=== PATIENT | female | born 1945 | race Caucasian/White ===

== ENCOUNTER → 2016-10-08 | Outpatient (CLI) | payer OTHER ==
--- NOTE | 2016-10-08 17:41 | MA ---
Screening Digital Mammogram With iCAD Analysis Clinical Indications: Routine screening. Technique: Standard cephalocaudal and mediolateral oblique projections were obtained. This examinatio n was processed by the iCAD computer aided detection system. Comparison: June 2012, June 2010, January 2009, August 2007. Breast density: Type B; Scattered fibroglandular densities. Findings: CAD was reviewed. No masses, suspicious calcifications or other signs of malignancy are id entified. There has been no significant change in the appearance of either breast. Impression: Negative mammogram. BI-RADS 1. Recommendation: Routine mammographic screening in one year as long as physical examination is negativ [facility]Pending [facility]. Negative mammography should not preclude additional workup of a clinically suspicious finding. The patient's information is entered into a reminder system with a target due date for her next mammo gram.
== END ==
LOC: BMCIMAGING 15:04
DX: Z12.31 Encounter for screening mammogram for malignant neoplasm of breast (principal)

== ENCOUNTER → 2017-04-16 | Outpatient (CLI) | payer OTHER | LOC: FIMAGING 11:00 | PROVIDERS: ATTEND Internal Medicine | DX: R91.1 Solitary pulmonary nodule (principal); M41.85 Other forms of scoliosis, thoracolumbar region ==

== ENCOUNTER → 2017-11-05 | Outpatient (CLI) | payer OTHER | LOC: BMCIMAGING 13:50 | PROVIDERS: ATTEND Internal Medicine | DX: Z12.31 Encounter for screening mammogram for malignant neoplasm of breast (principal); Z13.820 Encounter for screening for osteoporosis; M81.0 Age-related osteoporosis without current pathological fracture; E07.9 Disorder of thyroid, unspecified; E21.5 Disorder of parathyroid gland, unspecified ==

== ENCOUNTER 2017-12-27 18:21 | Emergency (ER) | payer OTHER ==
--- NOTE | 2017-12-27 18:44 | CPEKG ---
Heart Rate: 62 RR Interval: 968 P-R Interval: 172 QRSD Interval: 80 QT Interval: 428 QTC Interval: 435 P [place]: 53 QRS [place]: -26 T Wave [place]: -17 EKG Severity - ABNORMAL ECG - EKG Impression: SINUS RHYTHM EKG Impression: ATRIAL PREMATURE COMPLEX EKG Impression: PROBABLE LEFT ATRIAL ABNORMALITY EKG Impression: BORDERLINE LEFT AXIS DEVIATION EKG Impression: NONSPECIFIC T ABNORMALITIES, INFERIOR LEADS Electronically Signed By: Ronaldo Barkley 29-Dec-2017 08:31:41
[2017-12-27 18:51] LABS: PLATELET COUNT 178 10^3/uL (150-400)
[2017-12-27] MEDS ORDERED: NS 500 ML IV ONE (19:01)
--- NOTE | 2017-12-27 19:04 | EDPHY ---
H & P Stated Complaint: chest pressure/palpitations starting Sat, believes is going in &out of Afib Time Seen by Provider: 12/27/17 18:31 HPI/ROS: CHIEF COMPLAINT: Palpitations HISTORY OF PRESENT ILLNESS: 72-year-old female with a history of paroxysmal atrial fibrillation presents with palpitations. Onset of palpitations 2 days ago. The palpitations come and go and seem to be related to alcohol intake. The palpitations feel like an irregular heartbeat and then quickly away. Concerned about atrial fibrillation. No associated chest pain or shortness of breath. REVIEW OF SYSTEMS: complete 10 point ROS negative except at noted in the HPI - Medical/Surgical History Hx Asthma: No Hx Chronic Respiratory Disease: No Hx Diabetes: No Hx Cardiac Disease: Yes Hx Renal Disease: No Hx Cirrhosis: No Hx Alcoholism: No Hx HIV/AIDS: No Hx Splenectomy or Spleen Trauma: No Other PMH: Afib, thyroidectomy, adenoidectomy - Social History Smoking Status: Former smoker - Physical Exam Exam: General Appearance: Alert, pleasant Eyes: Pupils equal and round, no conjunctival pallor ENT, Mouth: Mucous membranes moist Neck: Normal inspection Respiratory: Lungs are clear to auscultation Cardiovascular: Regular rate and rhythm, no murmur Gastrointestinal: Abdomen is soft and nontender Neurological: A&O, nonfocal, normal gait Skin: Warm and dry, no rash Extremities: Nontender, no pedal edema Psychiatric: Mood and affect normal Constitutional: Initial Vital Signs Temperature (C) 36.6 C 12/27/17 18:23 Heart Rate 71 12/27/17 18:23 Respiratory Rate 18 12/27/17 18:23 Blood Pressure 139/78 H 12/27/17 18:23 O2 Sat (%) 94 12/27/17 18:23 O2 Delivery Mode Room Air Allergies/Adverse Reactions: No Known Allergies Allergy (Verified 12/27/17 18:23) Home Medications: Medication Instructions Recorded ATENOLOL 12/24/09 Aspirin 81mg 12/24/09 LEXAPRO 12/24/09 Levothyroxine 12/24/09 SIMVASTATIN 12/24/09 Medical Decision Making - Diagnostics EKG Interpretation: EKG interpreted by me reveals normal sinus rhythm, rate 62, Pac, nonspecific T- wave changes. Interpretation: Abnormal EKG Imaging Results: Imaging Impressions Chest X-Ray 12/27/17 18:31 Impression: 1. Stable fibrotic change at the left lung base with eventration left hemidiaphragm. 2. Stable moderate scoliosis thoracic spine. Compression of T12 better seen on prior CT imaging. ED Course/Re-evaluation: This patient presents with intermittent palpitations, consistent with paroxysmal atrial fibrillation versus PAC's/PVC's. Stat EKG reveals normal sinus rhythm with PACs. steam fitter reveals occasional PACs. No atrial fibrillation while in the emergency department. IV normal saline 500 mL given for clinical history of decreased oral intake. CBC and Chem 7 unremarkable. Will follow up with Cardiology. Differential Diagnosis: Differential diagnosis includes though is not limited to atrial fibrillation, ventricular dysrhythmia, PVC, SVT. - Data Points Laboratory Results: Laboratory Results 12/27/17 18:35 12/27/17 18:35 12/27/17 12/27/17 18:35 18:35 WBC 6.03 10^3/uL 10^3/uL (3.80-9.50) RBC 4.28 10^6/uL 10^6/uL (4.18-5.33) Hgb 12.9 g/dL g/dL (12.6-16.3) Hct 39.3 % % (38.0-47.0) MCV 91.8 fL fL (81.5-99.8) MCH 30.1 pg pg (27.9-34.1) MCHC 32.8 g/dL g/dL (32.4-36.7) RDW 13.0 % % (11.5-15.2) Plt Count 178 10^3/uL 10^3/uL (150-400) MPV 10.5 fL fL (8.7-11.7) Neut % (Auto) 63.3 % % (39.3-74.2) Lymph % (Auto) 26.7 % % (15.0-45.0) [place] % (Auto) 7.1 % % (4.5-13.0) Eos % (Auto) 2.3 % % (0.6-7.6) Baso % (Auto) 0.3 % % (0.3-1.7) Nucleat RBC Rel Count 0.0 % % (0.0-0.2) Absolute Neuts (auto) 3.81 10^3/uL 10^3/uL (1.70-6.50) Absolute Lymphs (auto) 1.61 10^3/uL 10^3/uL (1.00-3.00) Absolute Monos (auto) 0.43 10^3/uL 10^3/uL (0.30-0.80) Absolute Eos (auto) 0.14 10^3/uL 10^3/uL (0.03-0.40) Absolute Basos (auto) 0.02 10^3/uL 10^3/uL (0.02-0.10) Absolute Nucleated RBC 0.00 10^3/uL 10^3/uL (0-0.01) Immature Gran % 0.3 % % (0.0-1.1) Immature Gran # 0.02 10^3/uL 10^3/uL (0.00-0.10) Sodium 142 mEq/L mEq/L (135-145) Potassium 3.7 mEq/L mEq/L (3.5-5.2) Chloride 106 mEq/L mEq/L (97-110) Carbon Dioxide 24 mEq/l mEq/l (22-31) Anion Gap 12 mEq/L mEq/L (8-16) BUN 23 mg/dL mg/dL (7-23) Creatinine 1.1 mg/dL H mg/dL (0.6-1.0) Estimated GFR 49 Glucose 114 mg/dL H mg/dL (70-100) Calcium 9.2 mg/dL mg/dL (8.5-10.4) Troponin I < 0.012 ng/mL ng/mL (0.000-0.034) NT-Pro-B Natriuret Pep 455 pg/mL H pg/mL (0-125) Medications Given: Discontinued Medications Sodium Chloride (Ns) 500 mls @ 1,000 mls/hr IV EDNOW ONE PRN Reason: Protocol Stop: 12/27/17 19:30 Last Admin: 12/27/17 19:34 Dose: 500 mls Departure - Departure Disposition: Home, Routine, Self-Care Clinical Impression: PAC (premature atrial contraction) Condition: Good Instructions: Premature Atrial Contractions (ED) Additional Instructions: Continue taking aspirin daily. Drink plenty of fluids. Follow-up with cardiology. Referrals: Alden Mejia MD [Primary Care Provider] - As per Instructions Sam Nixon MD [Medical Doctor] - As per Instructions [facility] [Provider Group] - As per Instructions
[2017-12-27 19:57] VITALS: BP 111/51
== END 2017-12-27 20:07 | disposition home or self-care (01) ==
DX: I49.1 Atrial premature depolarization (principal); Z79.82 Long term (current) use of aspirin; Z87.891 Personal history of nicotine dependence

== ENCOUNTER → 2018-01-14 | Outpatient (CLI) | payer OTHER | LOC: BMCIMAGING 15:04 | PROVIDERS: ATTEND Internal Medicine Endocrinology, Diabetes & Metabolism | DX: E21.3 Hyperparathyroidism, unspecified (principal) | CPT/HCPCS: 76536-PO ==

== ENCOUNTER → 2018-11-26 | Outpatient (CLI) | payer OTHER | LOC: BMCIMAGING 09:07 | PROVIDERS: ATTEND Internal Medicine | DX: Z12.31 Encounter for screening mammogram for malignant neoplasm of breast (principal) ==